=== PATIENT | female | born 1950 | race Caucasian/White ===

== ENCOUNTER → 2017-07-11 | Outpatient (CLI) | payer MEDICARE ==
[~2017-07-11] MED LIST: ADVAIR 250-501 EACH INH; ANASPAZ0.125 MG; ASMANEX0.135 GM IH; ASMANEX0.24 G1 IH; B12INJ IM; BENZONATATE100 MG PO; BUPRENORPHINE HC2 MG SL; BUPRENORPHINE HC8 MG SL; BUTRANS1 EAC1 TRANSDERM; CENTRUM CHEWAB1 EACH PO; COUMADIN6 MG PO; DIFLUCAN; DIFLUCAN100 MG PO; ELIQUIS2.5 MG PO; ERYTHROMYCIN TOP; FLEXERIL PO; FLONASE16 GM NASAL; FLUOCINONI0.05 %/65 TOP; FOLIC ACID 1 MG1 MG PO; FORADIL12 MCG IH; HUMIRA10 MG/0.2 SQ; HUMIRA40 MG/0.8 SQ; HYDROCODONE-AP1 EAC6 PO; IMURAN 50MG TAB50 M1 PO; KLOR-CON 1010 MEQ PO; LASIX 20 MG TAB20 MG PO; LEVAQUIN 500 M500 M2 PO; LOMOTIL TABLET1 EACH; METHOTREXA25 MG/1 M4 IV; MOBIC7.5 MG PO; NASONEX; NASONEX17 GM NS; NORCO 5-325 TA1 EACH; NORCO 5-325 TA1 EACH PO; ONDANSETRON HCL4 M2; ONDANSETRON ODT4 MG PO; OXECTA5 MG PO; OXYCONTIN10 M1 PO; OXYIR5 MG; PANOXYL156 GM TP; PERCOCET 5-3251 EACH PO; PHENERGAN 25 MG25 M1 PO; PREDNISONE; PREDNISONE 10 M10 MG PO; PREDNISONE 20 M20 MG PO; PROAIR HFA8.5 GM INH; PROLIA60 MG/1 ML INJECTION; PULMICORT0.25 MG/2; REMICADE 1100 MG/VIA IV; REMICADE 1100 MG/VIA IVPB; SINGULAIR 10 MG10 M1 PO; TESSALON PERLE100 MG PO; TESSALON200 MG; ULTRAM 50MG TAB50 MG PO; VENTOLIN; VICODIN 5-5001 EACH PO; VITAMIN D2000 UNIT PO; ZANAFLEX4 MG PO; ZOFRAN4 MG PO; ZYRTEC; ZYRTEC10 M1 PO
--- NOTE | 2017-07-13 09:00 | PAINCON ---
[facility] [address] [place] [address] PAIN MANAGEMENT CONSULTATION Name: TEGAN COWART Room: [facility].#: [id number] Admission: 07/11/17 Attend Phys: Charanjit Lehman DO Discharge: Date of : 50 Report #: [id number] THIS REPORT FOR: //name// CC: Charanjit Guevara MD REFERRING PHYSICIAN: Pamela Guevara M.D. CHIEF COMPLAINT: Low back pain and chronic abdominal pain. HISTORY OF PRESENT ILLNESS: As you know, the patient is a very unfortunate 66-year-old female who suffers from chronic low back pain, abdominal pain. She was referred to our clinic by Dr. Dodson originally to help with ongoing abdominal pain. We started the patient on appropriate medication form of buprenorphine 8 mg dose 3 times a day and states stabilized that dose at that level. She continues to experience the pain for which she sought evaluation and underwent epidural injections with [facility]. She now wishes to change her care and therapy to the Pain Service. She is going to be following up with physicians at [facility] for chronic abdominal pain and chronic low back pain. She returns today in followup visit for final prescriptions of medications for the next 3 months. ALLERGIES: See extensive list in chart. CURRENT MEDICATIONS: Albuterol, Tessalon Perles, buprenorphine, sertraline, cholecalciferol, Prolia, Diflucan, methotrexate, Flonase, Advair, folic acid, Lasix, ondansetron, potassium chloride, promethazine, tizanidine, vitamin B12 and erythromycin topical. SOCIAL HISTORY: The patient denies tobacco, alcohol, IV or illicit drug use. She is on medical disability, unaccompanied today. IMAGING DATA: No new imaging available. PHYSICAL EXAMINATION: VITAL SIGNS: Blood pressure 138/80, pulse is 102 and respiratory rate 16 and unlabored. The patient is 98% on room air, temperature 98.4 degrees Fahrenheit, height 5 feet tall, weight 146 pounds and BMI calculated 28.7. GENERAL: Well-developed, well-nourished and well-hydrated 66-year-old female. She appears in no acute distress. Pain is rated at 8/10. HEENT: Normocephalic and atraumatic. Pupils equal, round and reactive to light. EXTREMITIES: Show no clubbing, no cyanosis and no edema. MUSCULOSKELETAL: Lower extremity strength 5/5. She does have an antalgic gait, utilizing a roller walker for ambulation. [place] [address] PAIN MANAGEMENT CONSULTATION Name: TEGAN COWART Room: [facility]#: [id number] Admission: 07/11/17 Attend Phys: Charanjit Lehman DO Discharge: Date of : 50 Report #: [id number], kyphotic curvature of the thoracic spine. ASSESSMENT: 1. Chronic abdominal pain. 2. Crohn's disease. 3. Chronic low back pain. 4. Complicated medical therapy utilizing scheduled medications. 5. Opioid dependency. 6. Chronic intractable pain. PLAN: 1. The patient has returned today in followup visit indicating that she wishes to change her care to Pain Center. Apparently, the patient is being seen in undergoing epidural injections under fluoroscopic guidance to address lumbar radicular symptoms despite the fact that these provided no improvement in symptoms in the past. They performed the first in the series, which again has provided no improvement. She is now going to be seeing Colorectal surgery following with her GI physician at and being treated by the Pain Service. We recommend that she transfer all care to their services as we are unable to gain any medical information from the Service despite multiple requests. The patient is understanding and does wish to change her care to the Pain Service to continue therapy. 2. We will provide the patient with buprenorphine 8 mg dose 1 tab sublingual q. 8 hours p.r.n., #90 releases of today, 4 weeks from today and 8 weeks from today. 3. Recommend the patient remain at this level of medication and do not escalate the dose. The lower the dose, the more effective it will be at alleviating her abdominal pain, increasing doses will potentially put the patient at greater risk for abdominal obstructions and opioid-induced issues. Recommend lowest most effective dose and we believe we have the patient currently on formula. We will be releasing the patient's care to her new pain physician at [facility], they can contact our clinic for medical records if necessary. We wish the patient luck. We will have her return to her primary care physician and her new pain physician at [facility]. <ELECTRONICALLY SIGNED> By: Charanjit Lehman DO 07/13/17899 [id number] Lehman DO /nt
== END ==
LOC: M.PC 00:56
DX: K50.90 Crohn's disease, unspecified, without complications (principal); G89.29 Other chronic pain; F11.90 Opioid use, unspecified, uncomplicated; M54.5 Low back pain; Z79.899 Other long term (current) drug therapy

== ENCOUNTER → 2018-03-22 | Outpatient (CLI) | payer MEDICARE | LOC: M.RAD 13:03 | DX: Z12.31 Encounter for screening mammogram for malignant neoplasm of breast (principal) ==

== ENCOUNTER → 2018-04-03 | Outpatient (CLI) | payer MEDICARE | LOC: M.ULTRA 10:14 | DX: N63.11 Unspecified lump in the right breast, upper outer quadrant (principal) ==

== ENCOUNTER → 2018-04-18 | Outpatient (CLI) | payer MEDICARE | LOC: M.ULTRA 08:16 | DX: Z53.09 Procedure and treatment not carried out because of other contraindication (principal) ==

== ENCOUNTER → 2018-04-26 | Outpatient (CLI) | payer MEDICARE ==
--- NOTE | 2018-05-08 10:05 | PATH ---
[address] [address] PATHOLOGY RPT PROCEDURE Name: SOHA ANNA Room: [facility] Sol#: [id number] Admission: 04/26/18 Date of : 50 Discharge: Report #: [id number] Path Case #: [id number] [facility] Accession Number: [id number] . 01 Material submitted: . RIGHT BREAST 11:00, 7 CMFN . 01 Clinical history: . 1.9 x 1.1 x 2.0 cm. . 02 Diagnosis: Right breast, 11:00, 7 cm from nipple, image guided core biopsies: - Benign fibrofatty tissue without epithelial tissues identified. See comment. QTP/05/03/2018 . 02 Comment: Reviewed with Dr. Raad Darling who agrees with the diagnosis. Preliminary findings relayed to Maryan Dietz at approximately 12:25 on 05/03/2018 (JASMINA:pit 05/02/2018) . 02 Electronically signed: . Ernesto Joseph MD, Pathologist NPI- [id number] . 01 Gross description: . The specimen is received in formalin, labeled "Soha Anna, right breast 11:00, 7 cm from nipple", are three fibrofatty cores measuring 1.8 cm, 1.7 cm and 1.5 cm in length with an average 0.4 cm diameter. The specimen is entirely submitted in A1-A3. Specimen excised at: 0937 on 04/26/18, placed in formalin at: 0941 on 04/26/18, formalin exposure: Approximately 156 hours. (SWS; 05/02/2018) SHS/SHS . 02 Pathologist provided ICD-10: N63.10 . 02 CPT . 912947 Specimen Comment: A courtesy copy of this report has been sent to Specimen Comment: [phone], . Specimen Comment: Report sent to / DR DIETZ Specimen Comment: A duplicate report has been generated due to demographic updates. Performed at: [address] [place] [address] PATHOLOGY RPT PROCEDURE Name: SOHA ANNA Room: [facility]#: [id number] Admission: 04/26/18 Date of : 50 Discharge: Report #: [id number] Path Case #: [id number] [address] [facility] [address] [facility] [address], [place] [id number] MD Matthew Leon MD Phone: [phone] Performed at: [address] [facility] [address] [place] [id number] MD Ernesto Joseph MD Phone: [phone]
== END | disposition home or self-care (01) ==
LOC: M.ULTRA 08:19
DX: N60.81 Other benign mammary dysplasias of right breast (principal); R92.1 Mammographic calcification found on diagnostic imaging of breast; Z79.899 Other long term (current) drug therapy; Z88.8 Allergy status to other drugs, medicaments and biological substances

== ENCOUNTER → 2018-10-19 | Outpatient (CLI) | payer MEDICARE | LOC: M.RAD 10-11 08:12 | DX: N64.89 Other specified disorders of breast (principal) ==

== ENCOUNTER → 2019-06-20 | Outpatient (CLI) | payer MEDICARE | LOC: M.RAD 05-18 13:00 | DX: Z12.31 Encounter for screening mammogram for malignant neoplasm of breast (principal) ==

== ENCOUNTER → 2020-07-04 | Outpatient (CLI) | payer MEDICARE | LOC: M.RAD 06-27 13:00 | PROVIDERS: ATTEND Family Medicine | DX: Z12.31 Encounter for screening mammogram for malignant neoplasm of breast (principal) ==